=== PATIENT | female | born 2000 | race Two or more races ===

== ENCOUNTER 2024-01-06 09:28 | Emergency (ER) | payer OTHER, MEDICAID, SELFPAY ==
[2024-01-06 09:36] VITALS: BP 124/79; PULSE 75; RESP 18; TEMP 36.9; O2SAT 99; BMI 37.8
--- NOTE | 2024-01-06 09:48 | XR_ITS ---
Examination: OB Transvaginal ultrasound of the pelvis, complete Technique: Transvaginal sonographic images pelvis performed using hankins scale imaging Exam date and time: January 06, 2024 1234 hours INDICATIONS: Vaginal bleeding beginning one week ago worse today FINDINGS: Uterus 8.8 x 4.0 x 5.9 cm pole 0.4 cm correspondences 6 weeks 0 day gestational age Faint cardiac motion 69 bpm Mild free fluid in the cervix Right ovary 3.6 x 2.3 x 2.2 cm arterial flow Left ovary 2.4 x 1.7 x 1.7 cm arterial flow No fluid in the cul-de-sac IMPRESSION: Intrauterine gestation corresponding to 6 week 0 day gestational age Recommend short-term follow-up transvaginal study to document continued viability and normal cardiac motion.
[2024-01-06 10:11] LABS: Basophils % (Auto) 0 % (0-2.5); Eosinophils # (Auto) 0.5 Thou/mm3 (0.0-0.5); Eosinophils % (Auto) 5 % (0-10); Hematocrit 40.1 % (36.0-46.0); Hemoglobin 13.5 g/dL (12.0-16.0); Immature Granulocytes % (Auto) 0 % (0-0); Immature Granulocytes Auto 0.02 Thou/mm3 (0.00-0.00); Lymphocytes # (Auto) 2.3 Thou/mm3 (1.0-4.8); Lymphocytes % (Auto) 24 % (10-50); Mean Corpuscular HGB Conc 33.7 g/dl (31.0-37.0); Mean Corpuscular Hemoglobin 29.5 pg (25.0-35.0); Mean Corpuscular Volume 88 fL (80-100); Monocytes # (Auto) 0.6 Thou/mm3 (0.0-0.8); Monocytes % (Auto) 6 % (0-12); Neutrophils # (Auto) 6.2 Thou/mm3 (1.8-7.7); Neutrophils % (Auto) 64 % (37-80); Nucleated Red Blood Cell % 0 /100 WBC (0); Platelet Count 307 Thou/mm3 (140-440); RDW Standard Deviation 43.7 fL (36.4-46.3); Red Blood Count 4.58 Miln/mm3 (4.00-5.20); White Blood Count 9.6 Thou/mm3 (3.6-11.0)
[2024-01-06 10:47] LABS: Alanine Aminotransferase 20 U/L (10-49); Albumin, Serum 4.6 gm/dL (3.5-5.0); Albumin/Globulin Ratio 1.7 (1.2-2.2); Alkaline Phosphatase 69 U/L (46-116); Anion Gap 6 (7-16); Aspartate Amino Transferase 16 U/L (0-34); BUN/Creatinine Ratio 11 Ratio (12-20); Bilirubin,Total 0.4 mg/dL (0.3-1.2); Blood Urea Nitrogen 8 mg/dL (9-23); Calcium 9.7 mg/dL (8.3-10.6); Calcium (Corrected) 9.7 mg/dL (8.5-10.1); Carbon Dioxide 25.3 mMol/L (20.0-31.0); Chloride 104 mMol/L (98-107); Creatinine (Component) 0.7 mg/dL (0.6-1.3); Estimated Creatinine Clearance 148.8 mL/min (>60); Globulin 2.7 gm/dL (2.3-3.5); Glucose 89 mg/dL (74-106); Osmolality,Calculated 267 (275-295); Potassium 4.2 mMol/L (3.4-5.1); Sodium 135 mMol/L (136-145); Total Protein 7.3 gm/dL (5.7-8.2); eGFR > 60 See Note
[2024-01-06 10:59] LABS: Beta HCG,Quantitative 7859 mIU/mL (<5.0)
--- NOTE | 2024-01-06 14:41 | EDNOTE_ITS ---
ED OB Contraction Preg RMI/HPI General Chief complaint: Vaginal Bleeding Stated complaint: VAGINAL BLEEDING X 1 HR WITH CRAMPS; X 1W Time Seen by Provider: 01/06/24 09:34 Arrival date/time: 01/06/24 09:28 23-year-old female presents to the emergency department complains of vaginal bleeding x 1 hour with cramps patient reports she believes she is approximately 6 weeks . Patient reports no fever nausea or vomiting no dysuria polyuria Limitations: no limitations Related Data Previous Rx's ?Medication ?Instructions ?Recorded albuterol sulfate 90 mcg/actuation 2 inh inhalation Q6H PRN shortness 03/25/21 breath activated powder inhaler of breath #1 ea ikogulvqbgtxgjy-rzbamlqjmfjczfu-VZ 5 ml PO Q6H PRN cold symptoms #118 09/08/22 2 mg-30 mg-10 mg/5 mL oral syrup mL (Bromfed DM) prednisone 50 mg tablet 50 mg PO QDAY #5 tabs 09/08/22 Allergies Allergy/AdvReac Type Severity Reaction Status Date / Time No Known Allergies Allergy Verified 01/06/24 09:29 Review of Systems Review of Systems Systems Reviewed: All systems reviewed, normal except as documented Constitutional Constitutional: Reports system reviewed and no additional complaints, except as documented, Denies fever(s) and Denies headache(s) Eyes Eyes: Reports system reviewed and no additional complaints, except as documented and Denies blurry vision ENT Ears, Nose, Mouth, and Throat: Reports system reviewed and no additional complaints, except as documented, Denies headache(s), Denies nasal congestion and Denies nasal discharge Cardiovascular Cardiovascular: Reports system reviewed and no additional complaints, except as documented, Denies chest pain and Denies dyspnea Respiratory Respiratory: Reports system reviewed and no additional complaints, except as documented, Denies chest congestion, Denies cough and Denies dyspnea Gastrointestinal Gastrointestinal: Reports system reviewed and no additional complaints, except as documented and Denies abdominal pain Genitourinary Genitourinary: Reports system reviewed and no additional complaints, except as documented and Reports abnormal vaginal bleeding Integumentary/Breasts Skin/Breast: Reports system reviewed and no additional complaints, except as documented and Denies rash Neurologic Neurologic: Reports system reviewed and no additional complaints, except as documented, Reports as per HPI and Denies headache(s) Past Medical History Past Medical History CARDIAC: Negative Congestive Heart Failure RESPIRATORY: Positive Asthma; Negative Chronic Obstructive Pulmonary Disease (COPD) GENITOURINARY: Negative Renal Disease ENDOCRINE: Negative Diabetes Mellitus Type 1 or Diabetes Mellitus Type 2 Social History SMOKING STATUS: Never smoker SUBSTANCE USE: does not use ED Exam General Limitations: Present no limitations General appearance: Present alert and in no apparent distress Head Head exam: Present atraumatic Eye Eye exam: Present normal appearance, PERRL and EOMI ENT ENT exam: Present normal exam, normal oropharynx and mucous membranes moist Neck Neck exam: Present normal inspection, full ROM and trachea midline Chest Chest inspection: Present normal inspection and symmetric chest wall rise Respiratory Respiratory exam: Present normal lung sounds bilaterally Cardiovascular Cardiovascular exam: Present regular rate, normal rhythm and normal heart sounds Abdominal Exam Abdominal exam: Present soft and normal bowel sounds Extremities Exam Extremities exam: Present normal inspection and full ROM Back Exam Back exam: Present normal inspection and full ROM Neurological Exam Neurological exam: Present alert, oriented X3 and CN II-XII intact Psychiatric Psychiatric exam: Present normal affect and normal mood Skin Skin exam: Present warm, dry, intact and normal color Course Quality Measures none Orders Category Date Time Status US OB transvaginal Stat Exams 01/06/24 09:48 Completed ABO/RH Type Stat Lab 01/06/24 09:58 Completed Beta HCG,Quantitative Stat Lab 01/06/24 09:58 Completed CBC Stat Lab 01/06/24 09:58 Completed Comprehensive Metabolic Panel Stat Lab 01/06/24 09:58 Completed Vital Signs Vital signs: Vital Signs Temperature 98.4 F 01/06/24 09:36 Pulse Rate 75 01/06/24 09:36 Respiratory Rate 18 01/06/24 09:36 Blood Pressure 124/79 01/06/24 09:36 Pulse Oximetry (%) 99 01/06/24 09:36 Oxygen Delivery Method Room Air 01/06/24 09:36 O2 saturation 99% room air within normal limits Vaginal Bleeding MDM Narrative MDM Narrative: 23-year-old female presents to the emergency department complains of vaginal bleeding x 1 hour with cramps patient reports she believes she is approximately 6 weeks . Patient reports no fever nausea or vomiting no dysuria polyuria On exam patient well-appearing patient does not appear ill or toxic patient no acute distress patient reports no dizziness or weakness Lab work and ultrasound obtained lab work consistent with viable ultrasound does show to single IUP with heart rate is quite low I explained to the patient she must return within the next 2 days for repeat lab work and ultrasound for worsening symptoms to return immediately Patient data External records reviewed:: [facility] previous records Clinical information provided by:: patient Social determinants that could affect healthcare access:: none Patient has the following chronic illnesses:: None How is presenting disease/condition affected by chronic disease/condition?: no chronic disease Evaluation data The following diagnostics were reviewed and interpreted by me:: lab results and radiology exam(s) Lab and/or radiology exams considered but not ordered:: Labs and radiology obtained Interpretation Summary: Reviewed by me Medications / Prescriptions Medications or Prescriptions considered but not ordered:: Given Medication administrations:: Given Consultations Consultation(s) initiated? (list below): No Diagnosis Vaginal Bleeding Differential Diagnosis: missed and threatened Most likely diagnosis given after review of the tests above:: Threatened Admission Indicated Admission indicated?: not indicated Admission Request Was there a request for admission?: No Disposition Plan Disposition Plan: Discharge Discharge Attestation Discharge Attestation: The patient and all family members were given an opportunity to ask questions and understood the discharge instructions. Discharge instructions specifically effects, indications for sooner follow up or return to the emergency department, and the expected course of current diagnosis. Patient condition: Stable Discharge Plan Plan Patient Disposition: HOME (Self Care) Disposition Comment: Stable Prescriptions/Referrals Prescriptions/Med Rec: No Action albuterol sulfate 90 mcg/actuation aerosol powdr breath activated 2 inh inhalation Q6H PRN (Reason: shortness of breath) Qty: 1 0RF prednisone 50 mg tablet 50 mg PO QDAY Qty: 5 0RF [id number]-jpwskrmsa-VD [Bromfed DM] 2-30-10 mg/5 mL syrup 5 ml PO Q6H PRN (Reason: cold symptoms) Qty: 118 0RF Referrals: Kojo Cohn MD [Primary Care Provider] - 01/07/24 Problem List Clinical Impression: Threatened Patient/Caregiver Discharge Instructions Education Materials: ED Possible Miscarriage ... Additional Instructions: Please have repeat ultrasound imaging within the next 3 to 4 days for emergent concerns return immediately Print Language: Pashto Stand Alone Forms: Renee Award Info., Work/School Release, Patient Portal Info Letter YUNI/JONATHAN Supervising Physician PA/JONATHAN Supervising Physician: Dr stauffer
== END 2024-01-06 16:10 | disposition home or self-care (01) ==
PROVIDERS: Nurse Practitioner Primary Care; Emergency Provider Emergency Medicine; PCP Family Medicine
DX: O20.0 Threatened abortion (principal); Z3A.01 Less than 8 weeks gestation of pregnancy
CPT/HCPCS: 36415; 76817; 80053; 84702; 85025; 86900; 86901; 99284

== ENCOUNTER 2024-01-09 15:09 | Emergency (ER) | payer OTHER, MEDICAID, SELFPAY ==
[2024-01-09 15:55] VITALS: BP 126/80; PULSE 80; RESP 18; TEMP 36.9; O2SAT 100; BMI 40.1
--- NOTE | 2024-01-09 16:05 | XR_ITS ---
Examination: Complete OB ultrasound, less than 14 weeks, transabdominal Date and time of exam: January 09, 2024 1700 hrs. Indications: Vaginal bleeding beginning 2 weeks ago Technique: Obstetrical ultrasound images less than 14 weeks performed via transabdominal imaging Findings: Uterus 8.3 x 4.3 x 4.6 cm No uterine mass or intrauterine gestation Endometrial stripe 11 mm Right ovary 2.2 x 2.7 x 2.9 cm arterial flow Left ovary 2.4 x 1.7 x 2.2 cm arterial flow No fluid in the cul-de-sac Impression: No uterine mass or intrauterine gestation No adnexal mass
--- NOTE | 2024-01-09 16:06 | PD.EDRME ---
Rapid Medical Screening Exam RME Arrival date/time: 01/09/24 15:09 This is a 23-year-old female presents to the emergency department complaints of vaginal bleeding and she is here for recheck was here couple days ago. Rapid Chief Complaint: Medical Clearance Time Seen by Provider: 01/09/24 15:48 Vital signs: Vital Signs Temperature 98.5 F 01/09/24 15:55 Pulse Rate 80 01/09/24 15:55 Respiratory Rate 18 01/09/24 15:55 Blood Pressure 126/80 01/09/24 15:55 Pulse Oximetry (%) 100 01/09/24 15:55 Oxygen Delivery Method Room Air 01/09/24 15:55
[2024-01-09 16:27] LABS: Basophils % (Auto) 0 % (0-2.5); Eosinophils # (Auto) 0.5 Thou/mm3 (0.0-0.5); Eosinophils % (Auto) 5 % (0-10); Hematocrit 39.4 % (36.0-46.0); Hemoglobin 13.1 g/dL (12.0-16.0); Immature Granulocytes % (Auto) 0 % (0-0); Immature Granulocytes Auto 0.02 Thou/mm3 (0.00-0.00); Lymphocytes # (Auto) 2.9 Thou/mm3 (1.0-4.8); Lymphocytes % (Auto) 28 % (10-50); Mean Corpuscular HGB Conc 33.2 g/dl (31.0-37.0); Mean Corpuscular Hemoglobin 29.2 pg (25.0-35.0); Mean Corpuscular Volume 88 fL (80-100); Monocytes # (Auto) 0.7 Thou/mm3 (0.0-0.8); Monocytes % (Auto) 7 % (0-12); Neutrophils # (Auto) 6.1 Thou/mm3 (1.8-7.7); Neutrophils % (Auto) 59 % (37-80); Nucleated Red Blood Cell % 0 /100 WBC (0); Platelet Count 325 Thou/mm3 (140-440); RDW Standard Deviation 44.4 fL (36.4-46.3); Red Blood Count 4.49 Miln/mm3 (4.00-5.20); White Blood Count 10.3 Thou/mm3 (3.6-11.0)
[2024-01-09 17:16] LABS: Alanine Aminotransferase 19 U/L (10-49); Albumin, Serum 4.5 gm/dL (3.5-5.0); Albumin/Globulin Ratio 1.7 (1.2-2.2); Alkaline Phosphatase 75 U/L (46-116); Anion Gap 5 (7-16); Aspartate Amino Transferase 16 U/L (0-34); BUN/Creatinine Ratio 11 Ratio (12-20); Beta HCG,Quantitative 4775 mIU/mL (<5.0); Bilirubin,Total 0.2 mg/dL (0.3-1.2); Blood Urea Nitrogen 9 mg/dL (9-23); Calcium 9.7 mg/dL (8.3-10.6); Calcium (Corrected) 9.7 mg/dL (8.5-10.1); Carbon Dioxide 25.3 mMol/L (20.0-31.0); Chloride 106 mMol/L (98-107); Creatinine (Component) 0.8 mg/dL (0.6-1.3); Estimated Creatinine Clearance 125.4 mL/min (>60); Globulin 2.7 gm/dL (2.3-3.5); Glucose 95 mg/dL (74-106); Osmolality,Calculated 270 (275-295); Potassium 4.4 mMol/L (3.4-5.1); Sodium 136 mMol/L (136-145); Total Protein 7.2 gm/dL (5.7-8.2); eGFR > 60 See Note
[2024-01-09 18:11] LABS: Collection Type, Urine Clean Catch
[2024-01-09 18:49] LABS: Bilirubin,Urine Negative (Negative); Blood,Urine 3+ (Negative); Clarity,Urine Clear (Clear/Hazy); Color,Urine Yellow (Lt Yel-Yel); Glucose, Urine Negative (Negative); Ketones,Urine Negative (Negative); Leukocyte Esterase,Urine Positive (Negative); Nitrite,Urine Negative (Negative); PH,Urine 5.5 (5.0-7.0); Protein,Urine Negative (Neg - Trace); RBC,Urine 2 /hpf (0-3); Specific Gravity,Urine 1.022 (1.001-1.035); Squamous Epithelial Cell,Urine 4 /hpf (0-5); Urobilinogen,Urine Negative mg/dL (0.0-1.0); WBC,Urine 6 /hpf (0-5)
--- NOTE | 2024-01-09 21:06 | PD.EDMEDCL ---
ED Medical Clearance RME/HPI General Chief complaint: Medical Clearance Stated complaint: re check levels Time Seen by Provider: 01/09/24 15:48 Arrival date/time: 01/09/24 15:09 This is a 23-year-old female presents to the emergency department complaints of vaginal bleeding and she is here for recheck was here couple days ago. Patient reports no other symptoms. Patient states she is only spotting. No fever, nausea, vomiting, or diarrhea. RME / HPI RME / HPI Narrative: 01/09/24 15:09 This is a 23-year-old female presents to the emergency department complaints of vaginal bleeding and she is here for recheck was here couple days ago. Rapid Related Information Previous Rx's ?Medication ?Instructions ?Recorded albuterol sulfate 90 mcg/actuation 2 inh inhalation Q6H PRN shortness 03/25/21 breath activated powder inhaler of breath #1 ea orzhrolhaywmkxk-zcistmluayddkkr-OH 5 ml PO Q6H PRN cold symptoms #118 09/08/22 2 mg-30 mg-10 mg/5 mL oral syrup mL (Bromfed DM) prednisone 50 mg tablet 50 mg PO QDAY #5 tabs 09/08/22 Allergies Allergy/AdvReac Type Severity Reaction Status Date / Time NSAIDS (Non-Steroidal Allergy Verified 01/09/24 15:15 Anti-Inflamma Review of Systems Review of Systems Systems Reviewed: All systems reviewed, normal except as documented Past Medical History Past Medical History CARDIAC: Negative Congestive Heart Failure RESPIRATORY: Positive Asthma; Negative Chronic Obstructive Pulmonary Disease (COPD) GENITOURINARY: Negative Renal Disease ENDOCRINE: Negative Diabetes Mellitus Type 1 or Diabetes Mellitus Type 2 Social History SMOKING STATUS: Never smoker SUBSTANCE USE: does not use ED Exam General General appearance: Present alert and in no apparent distress Head Head exam: Present atraumatic Eye Eye exam: Present normal appearance, PERRL and EOMI ENT ENT exam: Present normal exam, normal oropharynx and mucous membranes moist Neck Neck exam: Present normal inspection, full ROM and trachea midline Chest Chest inspection: Present normal inspection and symmetric chest wall rise Respiratory Respiratory exam: Present normal lung sounds bilaterally Cardiovascular Cardiovascular exam: Present regular rate, normal rhythm and normal heart sounds Abdominal Exam Abdominal exam: Present soft Extremities Exam Extremities exam: Present normal inspection and full ROM Back Exam Back exam: Present normal inspection and full ROM Neurological Exam Neurological exam: Present alert and oriented X3 Psychiatric Psychiatric exam: Present normal affect and normal mood Skin Skin exam: Present warm, dry, intact and normal color Course Quality Measures none Orders Category Date Time Status US OB <= 14 weeks fetus Stat Exams 01/09/24 16:05 Completed ABO/RH Type Stat Lab 01/09/24 16:14 Completed Beta HCG,Quantitative Stat Lab 01/09/24 16:14 Completed CBC Stat Lab 01/09/24 16:14 Completed Comprehensive Metabolic Panel Stat Lab 01/09/24 16:14 Completed Urinalysis Stat Lab 01/09/24 18:05 Completed Urine Culture Stat Lab 01/09/24 18:05 Completed cefTRIAXone [Rocephin] 1,000 mg Med 01/09/24 21:18 Discontinued Lidocaine 1% 20 ml [Xylocaine 1% 20 ML] 2.1 ml IM X1 Vital Signs Vital signs: Vital Signs Temperature 98.5 F 01/09/24 15:55 Pulse Rate 80 01/09/24 15:55 Respiratory Rate 18 01/09/24 15:55 Blood Pressure 126/80 01/09/24 15:55 Pulse Oximetry (%) 100 01/09/24 15:55 Oxygen Delivery Method Room Air 01/09/24 15:55 Medical Clearance MDM Narrative MDM Narrative:: ultrasound: Findings: Uterus 8.3 x 4.3 x 4.6 cm No uterine mass or intrauterine gestation Endometrial stripe 11 mm Right ovary 2.2 x 2.7 x 2.9 cm arterial flow Left ovary 2.4 x 1.7 x 2.2 cm arterial flow No fluid in the cul-de-sac Impression: No uterine mass or intrauterine gestation No adnexal mass Patient labs unremarkable for the most part. HCG quant is decreasing. It is likely patient is having a misacarriage. Patient has blood in urine and wbc. Will send off a culture and tx with a dose of rocephin. Patient is to follow up with priumary provider in 1-2 days. Come back to ED if symptoms change or worsen. Patient data External records reviewed:: [facility] previous records Clinical information provided by:: patient Social determinants that could affect healthcare access:: none Patient has the following chronic illnesses:: none How is presenting disease/condition affected by chronic disease/condition?: no chronic disease Evaluation data The following diagnostics were reviewed and interpreted by me:: lab results and radiology exam(s) Lab and/or radiology exams considered but not ordered:: none Interpretation Summary: see note Medications / Prescriptions Medications or Prescriptions considered but not ordered:: none Medication administrations:: Medication Administration History Discontinued Medications Ceftriaxone Sodium 1,000 mg/ (Lidocaine HCl 2.1 ml) 0 mg IM X1 ONE Stop: 01/09/24 21:19 Last Admin: 01/09/24 21:28 Dose: 2.1 mg Documented By: SF see mar Consultations Consultation(s) initiated? (list below): No Diagnosis Medical Clearance Differential Diagnosis: other (uti, threatened , misscarriage ) Most likely diagnosis given after review of the tests above:: miscarriage Admission Indicated Admission indicated?: not indicated Admission Request Was there a request for admission?: No Disposition Plan Disposition Plan: Discharge Discharge Attestation Discharge Attestation: The patient and all family members were given an opportunity to ask questions and understood the discharge instructions. Discharge instructions specifically effects, indications for sooner follow up or return to the emergency department, and the expected course of current diagnosis. Patient condition: Stable Discharge Plan Plan Patient Disposition: HOME (Self Care) Patient condition on transfer: Stable Prescriptions/Referrals Prescriptions/Med Rec: No Action albuterol sulfate 90 mcg/actuation aerosol powdr breath activated 2 inh inhalation Q6H PRN (Reason: shortness of breath) Qty: 1 0RF prednisone 50 mg tablet 50 mg PO QDAY Qty: 5 0RF nahkfwhqfhcyclb-mxldxsjcu-CU [Bromfed DM] 2-30-10 mg/5 mL syrup 5 ml PO Q6H PRN (Reason: cold symptoms) Qty: 118 0RF Referrals: Kojo Cohn MD [Primary Care Provider] - In 1 week Problem List Clinical Impression: Urinary tract infection, Threatened Patient/Caregiver Discharge Instructions Discharge Activity: activity as tolerated Education Materials: Understanding Urinary Tract ..., Understanding Miscarriage ... Additional Instructions: PLease follow up with primary provider in 1-2 days. Drink plenty of fluids. Come back to ED if symptoms change or worsen. Print Language: Micronesian Stand Alone Forms: Renee Award Info., Patient Portal Info Letter PA/JONATHAN Supervising Physician PA/JONATHAN Supervising Physician: anna
[2024-01-09] MEDS: cefTRIAXone 1,000 MG, LIDOCAINE 1% 20 ML 2.1 ML IM (21:28)
[2024-01-09 22:08] VITALS: BP 122/79; PULSE 76; RESP 16; TEMP 36.7; O2SAT 98
== END 2024-01-09 22:09 | disposition home or self-care (01) ==
PROVIDERS: Nurse Practitioner Primary Care; Emergency Provider Emergency Medicine; PCP Family Medicine
DX: O23.40 Unspecified infection of urinary tract in pregnancy, unspecified trimester (principal); N39.0 Urinary tract infection, site not specified; O20.0 Threatened abortion; Z3A.00 Weeks of gestation of pregnancy not specified
CPT/HCPCS: 36415; 76801; 80053; 81001; 84702; 85025; 86900; 86901; 87086; 96372; 99284; J0696; J3490